=== PATIENT | female | born 1975 | race Hispanic/Latino ===

== ENCOUNTER 2018-02-28 16:31 | Emergency (ER) | payer SELFPAY ==
[2018-02-28] MEDS ORDERED: LORazepam 2 MG/ML VIAL ONE (17:09)
[2018-02-28 17:28] LABS: Absolute Monocytes 0.5 K/uL (0.1-1.3); Basophils % 0.6 % (0-1.3); Hematocrit 38.5 % (36.0-45.0); Lymphocytes % 26.7 % (15.3-44.8); MCH 32.7 pg (27.0-35.0); MCV 94.2 fL (80-100); MPV 8.5 fL (7.6-11.3); Monocytes % 6.2 % (3.3-12.3); RBC Red Blood Cell Count 4.09 M/uL (3.86-4.86)
[2018-02-28 17:33] LABS: Bicarbonate 25 mEq/L (21-31); Glucose Level 113 mg/dL (65-120); Potassium 3.5 mEq/L (3.6-5.0); Sodium Level 139 mEq/L (135-145)
[2018-02-28 17:36] LABS: Protime INR 0.96
[2018-02-28 17:39] LABS: ALT/SGPT 14 IU/L (10-60); AST/SGOT 22 IU/L (10-42); Albumin 4.7 g/dL (3.2-5.5); Alkaline Phosphatase 57 IU/L (42-121); BUN Blood Urea Nitrogen 7 mg/dL (6-20); Bilirubin Direct 0.1 mg/dL (0-0.2); Bilirubin Total 0.6 mg/dL (0.3-1.2); Protein, Total 8.1 g/dL (6.0-8.3)
[2018-02-28 17:41] LABS: Alcohol Serum/Plasma < 10 mg/dl
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
[2018-02-28 19:17] LABS: Barbiturates NEGATIVE; Benzodiazepines NEGATIVE; Cocaine NEGATIVE; METHAMPHETAM NEGATIVE; Opiates NEGATIVE
[2018-02-28 19:24] LABS: Urine Blood TRACE (NEG); Urine Glucose NEGATIVE (NEG); Urine Protein NEGATIVE (NEG); Urine pH 6.5 (5.0-7.0)
[2018-02-28 21:15] LABS: Phencyclidine NEGATIVE; THC Cannibis NEGATIVE
--- NOTE | 2018-03-01 06:55 | EKG ---
Test Date: 2018-02-28 Test Time: 16:55:57 Seasoner Hand: HAM MEASUREMENT RESULTS: Intervals: Rate: 75 VT: 132 QRSD: 62 QT: 358 QTc: 399 [place]: P: 71 VT: 132 QRS: 44 T: 56 INTERPRETIVE STATEMENTS: Normal sinus rhythm Right atrial enlargement Borderline ECG No previous ECG available for comparison Electronically Signed On 03-01-18 06:54:29 CDT by Jerry Wu
== END 2018-02-28 19:45 | disposition home or self-care (01) ==
LOC: ER 16:31
DX: G89.11 Acute pain due to trauma (principal); R56.9 Unspecified convulsions; V57.5XXA Driver of pick-up truck or van injured in collision with fixed or stationary object in traffic accident, initial encounter; F17.210 Nicotine dependence, cigarettes, uncomplicated; Z98.2 Presence of cerebrospinal fluid drainage device
CPT/HCPCS: 36415; 70450; 71260; 72125; 74177; 80048; 80076; 80307; 80320; 81003; 81025; 85025; 85610; 93005; 96374; 99284; Q9967

== ENCOUNTER 2020-04-05 22:39 | Emergency (ER) | payer SELFPAY ==
[2020-04-05 23:12] LABS: Absolute Lymphocytes (CBC) 4.1 K/uL (0.7-4.9); Basophils % 0.3 % (0-1.3); Hematocrit 35.5 % (36.0-45.0); Lymphocytes % 47.9 % (15.3-44.8); MPV 8.3 fL (7.6-11.3); RBC Red Blood Cell Count 3.69 M/uL (3.86-4.86)
[2020-04-05 23:16] LABS: Protime INR 0.97
[2020-04-05] MEDS ORDERED: NA CHLORIDE 0.9% 1,000 ML ONE (23:16)
[2020-04-05 23:32] LABS: ALT/SGPT 15 U/L (12-78); AST/SGOT 14 U/L (15-37); Alkaline Phosphatase 71 U/L (45-117); BUN Blood Urea Nitrogen 7 mg/dL (7-18); Bicarbonate 27 mmol/L (21-32); Bilirubin Direct < 0.1 mg/dL (0-0.2); Bilirubin Total 0.3 mg/dL (0.2-1.0); Glucose Level 79 mg/dL (74-106); Magnesium 2.1 mg/dL (1.8-2.4); NT PRO-BNP 26 pg/mL (<125); Potassium 3.7 mmol/L (3.5-5.1); Protein, Total 7.9 g/dL (6.4-8.2); Sodium Level 138 mmol/L (136-145); Troponin (Emerg Dept Use Only) < 0.02 ng/mL (0.0-0.045)
[2020-04-06 00:53] LABS: Urine Blood TRACE (NEG); Urine Glucose NEGATIVE (NEG); Urine Protein NEGATIVE (NEG); Urine pH 5.5 (5.0-7.0)
[2020-04-06 01:06] LABS: Barbiturates NEGATIVE (NEGATIVE); Benzodiazepines NEGATIVE (NEGATIVE); Cocaine NEGATIVE (NEGATIVE); METHAMPHETAM NEGATIVE (NEGATIVE); Methadone NEGATIVE (NEGATIVE); Opiates NEGATIVE (NEGATIVE); Phencyclidine NEGATIVE (NEGATIVE); THC Cannibis NEGATIVE (NEGATIVE)
[2020-04-06 01:22] LABS: Urine Bacteria 20-50 /HPF (<20); Urine Culture Reflex Order REFLEXED; Urine RBC <5 /HPF (NONE SEEN)
[2020-04-06] MEDS ORDERED: NA CHLORIDE 0.9% 500 ML ONE (01:30)
[2020-04-06] MEDS ORDERED: LEVETIRACETAM 500 MG/5 ML VIAL IV ONE (01:30)
[2020-04-06] MEDS ORDERED: CEFTRIAXONE/SWI 1gm 1 GM/10 ML SYR ONE (02:15)
[2020-04-06 03:16] VITALS: BP 101/62; TEMP 97.7; O2SAT 100
--- NOTE | 2020-04-06 11:24 | RAD REPORT ---
EXAM DESCRIPTION: Ismael Single View04/05/2020 11:04 pm CLINICAL HISTORY: Chest pain COMPARISON: none FINDINGS: Nodular opacity overlies each lung base. Remainder lungs appear clear of acute infiltrate The heart is normal size IMPRESSION: Nodular opacity overlying each lung base probably nipple shadows. As 1 or both could rep resent pulmonary nodules it is recommended that the patient have frontal and oblique views of the [address] with nipple markers for confirmation
--- NOTE | 2020-04-06 12:43 | RAD REPORT ---
EXAM DESCRIPTION: CT - Head Brain Wo Cont - 04/06/2020 3:03 am CLINICAL HISTORY: 45 years Female MENTAL STATUS CHANGE COMPARISON: None. TECHNIQUE: Contiguous axial CT images obtained through the brain without IV contrast. This exam was performed according to our department optimization program which includes automated exp osure control, adjustment of the mA and/or kv according to patient size and/or use of iterative recon struction technique. FINDINGS: There is a right parietal shunt tube passing through the right lateral ventricle with its tip just anterior to the right frontal horn. The shunt tubing below the radiolucent connector is not visualized suggesting that the shunt tube is no longer being used. The sulci appear unremarkable. Questionable minimal prominence of the ventricles. No abnormal areas of decreased density are identified. No mass lesions. No acute hemorrhage. No fluid or significant mucosal thickening in the visualized paranasal sinuses. No depressed calvarial fractures. IMPRESSION: There is a right parietal shunt tube which does not appear to be in use at this time. Cl inical correlation is recommended. The ventricles are likely normal but minimal hydrocephalus cannot be totally excluded. Electronically signed by: Myles El MD 04/05/2020 11:50 PM CDT Due to temporary technical issues with the PACS/Fluency reporting system, reports are being signed by the in house radiologist without review as a courtesy to ensure prompt reporting. The interpreting r adiologist is fully responsible for the content of the report.
--- NOTE | 2020-04-06 14:06 | EKG ---
Test Date: 2020-04-05 Test Time: 22:45:41 Firefighter Marine: RR MEASUREMENT RESULTS: Intervals: Rate: 83 [place]: 142 QRSD: 70 QT: 340 QTc: 399 [place]: P: 77 [place]: 142 QRS: 43 T: 69 INTERPRETIVE STATEMENTS: Normal sinus rhythm Septal infarct, age undetermined Abnormal ECG No previous ECG available for comparison Electronically Signed On 04-06-20 14:05:40 CDT by Kody Franco
--- NOTE | 2020-04-07 18:29 | ER ---
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 Reports an episode of epilepsy about two months ago . Coronavirus screen: Proceed with normal triage. Ebola Screen: No symptoms or risks identified at this time. Initial Sepsis Screen: Does the patient meet any 2 criteria? No. Patient's initial sepsis screen is negative. Does the patient have a suspected source of infection? No. Patient's initial sepsis screen is negative. Risk Assessment: Do you want to hurt yourself or someone else? Patient reports no desire to harm self or others. Onset of symptoms was April 05, 2020. 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 - Social history:: Smoking status: Patient reports the use of cigarette tobacco products. Screenin:47 Abuse screen: Denies threats or abuse. Nutritional screening: No deficits noted. ea Tuberculosis screening: No symptoms or risk factors identified. Fall Risk Assessment: 23:00 General: Appears in no apparent distress. uncomfortable, Behavior is cooperative. Pain: rr5 Denies pain. Neuro: Level of Consciousness is awake, episodes of delayed response. Oriented to person, place, time, tremors. Reports refrigeration person stated she is shaking started 7PM today. 23:00 Cardiovascular: Capillary refill < 3 seconds Patient's skin is warm and dry. rr5 Respiratory: Airway is patent Respiratory effort is even, unlabored, Respiratory pattern is regular, symmetrical. GI: No signs and/or symptoms were reported involving the gastrointestinal system. : No signs and/or symptoms were reported regarding the genitourinary system. EENT: No signs and/or symptoms were reported regarding the EENT system. Derm: Skin is intact, is thin, Skin temperature is warm. Musculoskeletal: Capillary refill < 3 seconds. 04/06 00:00 Reassessment: Patient appears in no apparent distress at this time. Patient is alert, rr5 oriented x 3, equal unlabored respirations, skin warm/dry/pink. patient stated i feel fine now. no active tremors noted. 00:15 Reassessment: verbal order by the provider only one liter of NS to infuse and no rr5 antibiotic for now. 01:00 Reassessment: Patient appears in no apparent distress at this time. Patient is alert, rr5 oriented x 3, equal unlabored respirations, skin warm/dry/pink. awaiting for result. 02:00 Reassessment: Patient appears in no apparent distress at this time. No changes from rr5 previously documented assessment. Patient and/or family updated on plan of care and expected duration. Pain level reassessed. Patient is alert, oriented x 3, equal unlabored respirations, skin warm/dry/pink. 02:44 Reassessment: Patient appears in no apparent distress at this time. Patient is alert, rr5 oriented x 3, equal unlabored respirations, skin warm/dry/pink. discharge instruction given and explained without complaints made. Vital Signs: 04/05 23:00 BP 144 / 90; Pulse 134; Resp 19; Temp 97.8; Pulse Ox 99% ; rr5 23:00 Weight 50 kg; rr5 23:28 BP 114 / 89; Pulse 95; Resp 18; Pulse Ox 98% on R/A; rr5 04/06 01:00 BP 99 / 65; Pulse 89; Resp 17; Pulse Ox 100% ; rr5 02:00 BP 105 / 62; Pulse 75; Resp 16; Pulse Ox 99% ; rr5 02:32 BP 101 / 62; Pulse 70; Resp 19; Temp 97.7; Pulse Ox 100% ; rr5 ED Course: 04/05 22:41 Patient arrived in ED. ds1 22:42 Phillip Olmstead PA is PHCP. cp 22:43 Nathaniel Link MD is Attending Physician. cp 22:47 Triage completed. ea 22:48 Patient has correct armband on for positive identification. Placed in gown. Bed in low ea position. Call light in reach. Side rails up X2. monitoring specialist on. Pulse ox on. NIBP on. 22:48 Arm band placed on right wrist. Patient placed in an exam room, on a stretcher, on ea registered nurse cardiac, on pulse oximetry. 22:50 EKG done, by ED staff, reviewed by Phillip DAWSON. rr5 23:00 Inserted saline lock: 18 gauge in right forearm, using aseptic technique. Blood rr5 collected. 23:00 First set of blood cultures drawn by me. rr5 23:05 XRAY Chest (1 view) In Process Unspecified. EDMS 23:05 Juan Carlos Gorman, RN is Primary Nurse. rr5 23:10 Seizure precautions initiated. rr5 23:10 Warm blanket given. rr5 23:38 CT Head Brain wo Cont In Process Unspecified. EDMS 23:43 No provider procedures requiring assistance completed. ls4 23:52 Juan Carlos Gorman, RN is Primary Nurse. rr5 04/06 00:40 Urine collected: clean catch specimen, clear. rr5 01:46 Repeat lab(s) drawn. by ED staff, sent to lab. rr5 02:22 Tee Meza MD is Referral Physician. cp 02:44 IV discontinued, intact, bleeding controlled, No redness/swelling at site. Pressure rr5 dressing applied. Administered Medications: 04/05 23:05 Drug: NS 0.9% 1000 ml Route: IV; Rate: 1 bolus; Site: right forearm; rr5 04/06 00:00 Follow up: IV Status: Completed infusion; IV Intake: 1000ml rr5 01:25 Drug: Keppra 1000 mg Route: IV; Rate: calculated rate; Site: right forearm; rr5 02:00 Follow up: Response: No adverse reaction; IV Status: Completed infusion; IV Intake: rr5 100ml 02:10 Drug: Rocephin 1 grams Route: IV; Rate: calculated rate; Site: right forearm; rr5 02:30 Follow up: Response: No adverse reaction; IV Status: Completed infusion; IV Intake: [id number] Intake: 00:00 IV: 1000ml; Total: 1000ml. rr5 02:00 IV: 100ml; Total: 1100ml. rr5 02:30 IV: 10ml; Total: 1110ml. rr5 Outcome: 02:23 Discharge ordered by . cp 02:44 Discharged to home via wheelchair. rr5 02:44 Condition: stable 02:44 Discharge instructions given to patient, Instructed on discharge instructions, follow up and referral plans. medication usage, Demonstrated understanding of instructions, follow-up care, medications, Prescriptions given X 2. 02:46 Patient left the ED. rr5 Signatures: Dispatcher [employer] EDKY DysonMalloryi ds1 Phillip Olmstead PA PA cp Antunez, Elena, RN RN Briana Parks RN RN ls4 Juan Carlos Gorman, RN RN rr5
--- NOTE | 2020-04-07 18:30 | EDPHYS ---
Physician Documentation [facility] Name: Clarisse Villalba Age: 45 yrs Sex: Female : 1975 Arrival Date: 04/05/2020 Time: 22:41 Bed 6 Private MD: ED Physician Nathaniel Link HPI: 04/05 22:50 This 45 yrs old Female presents to ER via Wheelchair with complaints of Shaking. cp 22:50 The patient presents with decreased mental status. cp 22:50 Onset: The symptoms/episode began/occurred today. Associated signs and symptoms: cp Pertinent positives: shaking of arms. Current symptoms: In the emergency department the patient's symptoms are unchanged from the initial presentation, despite home interventions. Patient's baseline: Neuro: alert and fully oriented, Motor: no deficits, Ambulation: walks without assistance, Speech: normal. Unable to obtain HPI due to altered mental status. 22:50 Mother reports patient went to [place] yesterday to see a physician for unknown cp reason. Mother reports she visited patient this morning about 0700 and she was appeared normal. 04/06 01:04 Patient alert now times 3 and reports history of seizure disorder since 2007. Patient cp reports seeing neurologist, DR Flaherty, and having MRI done yesterday in [place]. Last thing she remember is spilling cup of coffee on self earlier tonight. 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 - Social history:: Smoking status: Patient reports the use of cigarette tobacco products. ROS: 22:55 Neuro: Positive for altered mental status. cp 22:55 Constitutional: Negative for fever. cp 22:55 All other systems are negative. 22:55 Unable to obtain ROS due to altered mental status. Exam: 22:50 ECG was reviewed by the Attending Physician. cp 23:00 Constitutional: The patient appears in no acute distress, alert, awake, cp non-diaphoretic, non-toxic, well developed, well nourished. 23:00 Head/Face: Normocephalic, atraumatic. cp 23:00 Eyes: Periorbital structures: appear normal, Pupils: equal, round, and reactive to light and accomodation, Extraocular movements: intact throughout, Conjunctiva: normal, no exudate, no injection, Sclera: no appreciated abnormality, Lids and lashes: appear normal, bilaterally. 23:00 ENT: External ear(s): are unremarkable, Ear canal(s): are normal, clear, TM's: dullness, bilaterally, Nose: is normal, Mouth: Lips: moist, Oral mucosa: moist, Posterior pharynx: Airway: no evidence of obstruction, patent. 23:00 Neck: ROM/movement: is normal, is supple, without pain, no range of motions limitations, no meningismus, no nuchal rigidity. 23:00 Chest/axilla: Inspection: normal, Palpation: is normal, no crepitus, no tenderness. 23:00 Cardiovascular: Rate: tachycardic, Rhythm: regular, Edema: is not appreciated, JVD: is not appreciated. 23:00 Respiratory: the patient does not display signs of respiratory distress, Respirations: normal, no use of accessory muscles, no retractions, no tachypnea, labored breathing, is not present, Breath sounds: are clear throughout, no decreased breath sounds, no stridor, no wheezing. 23:00 Abdomen/GI: Inspection: abdomen appears normal, Bowel sounds: active, all quadrants, Palpation: abdomen is soft and non-tender, in all quadrants, rebound tenderness, is not appreciated, involuntary guarding, is not appreciated. 23:00 Back: vertebral tenderness, is not appreciated. 23:00 Musculoskeletal/extremity: Exam is negative for decreased range of motion, deformity, injury. 23:00 Skin: no rash present. 23:00 Neuro: Orientation: to person, Mentation: able to follow commands, slow to respond, confused, sleepy, Motor: moves all fours. Vital Signs: 23:00 BP 144 / 90; Pulse 134; Resp 19; Temp 97.8; Pulse Ox 99% ; rr5 23:00 Weight 50 kg; rr5 23:28 BP 114 / 89; Pulse 95; Resp 18; Pulse Ox 98% on R/A; rr5 04/06 01:00 BP 99 / 65; Pulse 89; Resp 17; Pulse Ox 100% ; rr5 02:00 BP 105 / 62; Pulse 75; Resp 16; Pulse Ox 99% ; rr5 02:32 BP 101 / 62; Pulse 70; Resp 19; Temp 97.7; Pulse Ox 100% ; rr5 MDM: 04/05 22:50 Patient medically screened. 23:00 Differential Diagnosis: CVA, alcohol intoxication, hypoglycemia, meningitis, overdose, cp seizure, sepsis, TIA, UTI, volume depletion. 04/06 01:35 Physician consultation: Tee Meza MD was called at 01:15, left message on voicemail. 02:00 ED course: VSS. Patient alert and answering questions appropriately. 02:22 Data reviewed: vital signs, nurses notes, lab test result(s), EKG, radiologic studies, cp CT scan, I have discussed the patient's presentation/case with the attending Emergency Department Physician; and as a result, I will discharge patient. 02:22 Test interpretation: by ED physician or midlevel provider: ECG, plain radiologic cp studies. Counseling: I had a detailed discussion with the patient and/or guardian regarding: the historical points, exam findings, and any diagnostic results supporting the discharge/admit diagnosis, lab results, radiology results, the need for outpatient follow up, for definitive care, a neurologist, to return to the emergency department if symptoms worsen or persist or if there are any questions or concerns that arise at home. Response to treatment: the patient's symptoms have markedly improved after treatment, and as a result, I will discharge patient. 04/05 22:53 Order name: Basic Metabolic Panel; Complete Time: 00:09 04/06 00:09 Interpretation: Normal except: GFR 73. 04/05 22:53 Order name: CBC with Diff; Complete Time: 00:09 04/06 00:33 Interpretation: Normal except: RBC 3.69; HCT 35.5; WENCESLAO% 40.8; LYM% 47.9. 04/05 22:53 Order name: LFT's; Complete Time: 00:09 04/06 00:33 Interpretation: Normal except: AST 14; GLOB 3.9; A/G 1.0. 04/05 22:53 Order name: Magnesium; Complete Time: 00:09 04/05 22:53 Order name: NT PRO-BNP; Complete Time: 00:09 04/05 22:53 Order name: PT-INR; Complete Time: 00:09 cp 04/05 22:53 Order name: Troponin (emerg Dept Use Only); Complete Time: 00:09 cp 04/06 00:34 Interpretation: Within normal limits: TROPED < 0.02. cp 04/05 22:53 Order name: Lactate; Complete Time: 00:09 04/06 00:33 Interpretation: Abnormal: LAC 2.2. cp 04/05 22:53 Order name: Procalcitonin; Complete Time: 00:09 cp 04/06 00:34 Interpretation: Within normal limits: Procalcitonin < 0.05. cp 04/05 22:53 Order name: UDS; Complete Time: 01:15 cp 04/05 22:53 Order name: Blood Culture Adult (2) 04/05 22:53 Order name: Urine Microscopic Only; Complete Time: 01:52 04/06 01:52 Interpretation: Normal except: UBACT 20-50. 04/06 00:45 Order name: Urine Dipstick--Ancillary (enter results); Complete Time: 01:15 or 04/06 01:52 Interpretation: Normal except: UBLD TRACE. cp 04/06 00:45 Order name: Urine --Ancillary (enter results); Complete Time: 01:15 mt 04/05 22:53 Order name: XRAY Chest (1 view) 04/05 22:53 Order name: EKG; Complete Time: 22:54 04/05 22:53 Order name: Cardiac monitoring; Complete Time: 23:05 04/05 22:53 Order name: EKG - Nurse/Tech; Complete Time: 23:05 04/05 22:53 Order name: IV Saline Lock; Complete Time: 23:05 04/05 22:53 Order name: Labs collected and sent; Complete Time: 23:06 04/05 22:53 Order name: O2 Per Protocol; Complete Time: 23:06 04/05 22:53 Order name: O2 Sat Monitoring; Complete Time: 23:06 04/05 22:53 Order name: CT Head Brain wo Cont cp 04/05 22:53 Order name: Urine Dipstick-Ancillary (obtain specimen); Complete Time: 00:44 cp 04/05 22:53 Order name: Urine Test (obtain specimen); Complete Time: 00:44 cp 04/06 01:24 Order name: Urine Culture EDAR 04/06 02:06 Order name: Lactate Sepsis 2 HR Follow-up; Complete Time: 02:22 EDAR 04/06 02:22 Interpretation: Reviewed. 04/06 01:37 Order name: Labs - recollect needed: repeat sepsis per protocol; Complete Time: 01:46 sg EC/30 22:50 Rate is 83 beats/min. Rhythm is regular. [place] interval is normal. QRS interval is normal. QT interval is normal. Interpreted by me. Reviewed by me. Administered Medications: 23:05 Drug: NS 0.9% 1000 ml Route: IV; Rate: 1 bolus; Site: right forearm; rr5 04/06 00:00 Follow up: IV Status: Completed infusion; IV Intake: 1000ml rr5 01:25 Drug: Keppra 1000 mg Route: IV; Rate: calculated rate; Site: right forearm; rr5 02:00 Follow up: Response: No adverse reaction; IV Status: Completed infusion; IV Intake: rr5 100ml 02:10 Drug: Rocephin 1 grams Route: IV; Rate: calculated rate; Site: right forearm; rr5 02:30 Follow up: Response: No adverse reaction; IV Status: Completed infusion; IV Intake: [id number] Disposition: 02:30 Chart complete. 07:12 Co-signature as Attending Physician, Nathaniel Link MD. [email or web address] Disposition: 04/06/20 02:23 Discharged to Home. Impression: Epilepsy and recurrent seizures, Urinary tract infection, site not specified. - Condition is Stable. - Discharge Instructions: Seizure, Adult, Urinary Tract Infection, Adult. - Prescriptions for Keppra 500 mg Oral Tablet - take 1 tablet by ORAL route every 12 hours; 60 tablet. Bactrim DS 800- 160 mg Oral Tablet - take 1 tablet by ORAL route every 12 hours for 5 days; 10 tablet. - Medication Reconciliation Form, Thank You Letter, Antibiotic Education, Prescription Opioid Use form. - Follow up: Tee Meza MD; When: 2 - 3 days; Reason: Recheck today's complaints. - Problem is an ongoing problem. - Symptoms have improved. Signatures: Dispatcher [facility] Cale Moreno RN RN sg Page, Corey, PA PA cp Antunez, Elena, RN RN ea Roque, Raymond RN RN rr5 Nathaniel Link MD MD [email or web address] Corrections: (The following items were deleted from the chart) 02:46 02:23 04/06/2020 02:23 Discharged to Home. Impression: Epilepsy and recurrent seizures; rr5 Urinary tract infection, site not specified. Condition is Stable. Prescriptions for Keppra 500 mg Oral Tablet - take 1 tablet by ORAL route every 12 hours; 60 tablet, Bactrim DS 800-160 mg Oral Tablet - take 1 tablet by ORAL route every 12 hours for 5 days; 10 tablet. and Forms are Medication Reconciliation Form, Thank You Letter, Antibiotic Education, Prescription Opioid Use. Follow up: Tee Meza; When: 2 - 3 days; Reason: Recheck today's complaints. Problem is an ongoing problem. Symptoms have improved. cp
== END 2020-04-06 02:46 | disposition home or self-care (01) ==
LOC: MERGE 22:39 → ER 22:39
DX: N39.0 Urinary tract infection, site not specified (principal)
CPT/HCPCS: 36415; 70450; 71045; 80048; 80076; 80307; 81003; 81015; 81025; 83605; 83735; 83880; 84145; 84484; 85025; 85610; 87040; 87086; 87088; 93005; 96361; 96365; 96367; 99285; J0696; J1953; J7030; J7040

== ENCOUNTER 2020-04-08 22:58 | Emergency (ER) | payer SELFPAY ==
--- OUTSIDE RECORDS SUMMARY | 2020-04-08 23:06 | XMS REPORT | Summary of Care ---
:1975 Author Organization [facility] Address [address] [place] [id number] Care Team Providers Name Role Phone Anh Roman Jeanne UMANZOR Primary Care Provider Reason for Referral (Routine) Status Reason Specialty Diagnoses / Referred By Contact Refe rred To Procedures Contact New Request EEG Diagnoses Partial symptomatic epilepsy with complex partial seizures, not intractable, without status epilepticus Tee Davis Eeg/Ep-Jsa Procedures Electroencephalogram (EEG) - Duration of test: 20-60 mins MD Brandyn [address] [place] [phone] Phone: Phone: Fax: Reason for Visit Reason Comments Seizures Encounter Details Date Type Department Care Team Description 02/04/2020 Telemedicine Visit [facility] Tee Davis l symptomatic Neurology-Sasha Ahumada MD epilepsy with [facility] [address], [address] [facility]. seizures, not [place], [place] intractable, [phone] without status [phone] epilepticus (Primary Dx) Allergies No Known Allergiesdocumented as of this encounter (statuses as of 02/11/2020) Medications Medication Sig Dispensed Refills Start Date End Date Status aspirin-acetaminophen- Take 1 tablet by 0 Active caffeine (EXCEDRIN mouth every 6 MIGRAINE) 250-250-65 (six) hours as mg per tablet needed for Pain. documented as of this encounter (statuses as of 02/11/2020) Active Problems Problem Noted Date Encounter for other general counseling or advice on co ntraception 12/15/2016 Encounter for routine gynecological examination 2014 Overview: ICD10 Diagnosis Term [employer] Utility Surveillance of previously prescribed contraceptive me thod 11/27/2014 Overview: ICD10 Diagnosis Term [employer] Depo-Provera contraceptive status 11/27/2014 Underweight 11/27/2014 documented as of this encounter (statuses as of 02/11/2020) Resolved Problems Problem Noted Date Resolved Date Cold intolerance 11/27/2014 11/18/2015 documented as of this encounter (statuses as of 02/11/2020) Social History Tobacco Use Types Packs/Day Years Used Date Never Smoker Smokeless Tobacco: Never Used Alcohol Use Drinks/Week oz/Week Comments No 0 Standard drinks or equivalent 0.0 Sex Assigned at Date Recorded Not on file Job Start Date Occupation Industry Not on file Not on file Not on file Travel History Travel Start Travel End No recent travel history available. documented as of this encounter Last Filed Vital Signs Not on filedocumented in this encounter Progress Notes Tee Davis MD - 02/04/2020 9:40 AM CDT HISTORY OF PRESENT ILLNESS: Clarisse Villalba is a 45 year old female. Chief complaint: Question of seizures. The patient verbally consented to the televisit today. The visit was conducted by telehealth with patient at home and the physician in the office. No other participants were involved in the visit. Thisvisit was audio only. The patient had previously been seen back in 2018, and at that time it seemedvery likely that she probably was suffering with seizures. She generally has what she describes our "small ones" in the morning, and around 01/24/2020 she had a longer episode which involved also the right arm and leg jerking. That had lasted about 15 or 20 minutes. The brother of the patient had been holding her up. She is not sure in the past whether or not she has been on any other anticonvulsant me dication. She does know that she is not supposed to be driving and in fact she did lose her driving privileges. PMH: has a past medical history of Meningitis (1979) and Trauma (12/14/2014). She also has no past medical history of Abnormal Pap smear, Abnormal uterine bleeding, Anemia, Anesthesia complication, Anxiety, Asthma, Autoimmune disorder, Blood dyscrasia, Blood transfusion, without reported diagnosis, Breastdisorder, Cancer, Clotting disorder, Coronary atherosclerosis of unspecified type of vessel, [place] or graft, Depression, Diabetes mellitus, Endometriosis, Female infertility, Genital herpes, Genital warts, Heart murmur, Hormone disorder, Human immunodeficiency virus (HIV) disease, Hypertension, Kidney disease, Leiomyoma of uterus, unspecified, Liver disease, Menstrual disorder, Osteoporosis, PID (pelvic inflammatory disease), Rh incompatibility, Seizures, Sickle cell anemia, Substance abuse, Superficial thrombophlebitis, antepartum(671.23), Thyroid disease, Tuberculosis, or Urinary incontinence. Current Outpatient Medications: iqyaahx-aylakbtddeyrb-uoobxhrn (EXCEDRIN MIGRAINE) 250-250-65 mg per tablet, Take 1 tablet by mouth every 6 (six) hours as needed for Pain., Disp: , Rfl: Family History Problem Relation Age of Onset Asthma Paternal Grandmother defects NoFHx Breast Cancer NoFHx Colon Cancer NoFHx Ovarian Cancer NoFHx Uterine Cancer NoFHx Cancer NoFHx Depression NoFHx Diabetes NoFHx Genetic NoFHx Heart NoFHx High cholesterol NoFHx Hypertension NoFHx Mental retardation NoFHx Neurological NoFHx Osteoporosis NoFHx Psychiatry NoFHx Other - see comments NoFHx Arthritis NoFHx Social History Socioeconomic History Marital status: Single Spouse name: Not on file Number of children: Not on file Years of education: Not on file Highest education level: Not on file Occupational History Not on file Social Needs Financial resource strain: Not on file Food insecurity: Worry: Not on file Inability: Not on file Transportation needs: Medical: Not on file Non-medical: Not on file Tobacco Use Smoking status: Never Smoker Smokeless tobacco: Never Used Substance and Sexual Activity Alcohol use: No Alcohol/week: 0.0 standard drinks Drug use: No Sexual activity: Not Currently control/protection: Injection Lifestyle Physical activity: Days per week: Not on file Minutes per session: Not on file Stress: Not on file Relationships Social connections: Talks on phone: Not on file Gets together: Not on file Attends spiritism service: Not on file Active member of club or organization: Not on file Attends meetings of clubs or organizations: Not on file Relationship status: Not on file Intimate partner violence: Fear of current or ex partner: Not on file Emotionally abused: Not on file Physically abused: Not on file Forced sexual activity: Not on file Other Topics Concern Not on file Social History Narrative Patient denies any violence or domestic abuse. The patient is alert and oriented times 3. Cooperative and pleasant during the examination and will follow multi step commands. Joint Cutter Machine and expression normal. No paraphrasic errors present. ASSESSMENT AND RECOMMENDATIONS: ICD-10-CM ICD-9-CM 1. Partial symptomatic epilepsy with complex partial seizures, not intractable, without status epilepticus G40.209 345.40 I did encourage the patient to get EEG completed, I think that she really needs to have it done so that we can document epileptiform discharges and also get an idea if she has one or more focuses of potential abnormality. During the telephone visit as well, discussion occurred about possible treatment, and I did tell the patient that the treatment would likely be with a medication called Keppra. Alsodid discuss potential risks and benefits of that medication while we were on the telephone. I did tell her we could see her back and probably treat her with a medication like Keppra once she has the EEG and I also explained that this drug was a generic medication. Creation of the note was aided by utilizing a cut/paste operation of text from a Microsoft Word template created with [employer]. The text was dictated into the template via Dragon Naturally Speaking. documented in this encounter Plan of Treatment Health Maintenance Due Date Last Done Comments DTaP,Tdap,and Td Vaccines 01/24/1988 (1 - Tdap) Breast Cancer Screening 2017 (MAMMOGRAM) PAP SMEAR 11/19/2017 11/19/2014, 04/26/2011, 03/03/2010, Additional history exists INFLUENZA VACCINE (#1) 2019 PNEUMOCOCCAL 0-64 YEARS Aged Out No longe r eligible COMBINED SERIES based on patient 's age to complete this topic documented as of this encounter Results Not on filedocumented in this encounter Visit Diagnoses Diagnosis Partial symptomatic epilepsy with comple x partial seizures, not intractable, without status epilepticus - Primary documented in this encounter Advance Directives Name Relationship Healthcare Agent Communication Relationship Yuki Villalba Mother [facility] healthcare agent (Mobile) [email or web address]
--- OUTSIDE RECORDS SUMMARY | 2020-04-08 23:06 | XMS REPORT | Continuity of Care Document ---
:1975 Author Organization [facility] t Address [address] [place] [address] Care Team Providers Name Role Phone Brandyn Davis MD Attending Clinician Problems This patient has no known problems. Allergies, Adverse Reactions, Alerts This patient has no known allergies or adverse reactions. Medications This patient has no known medications. Procedures This patient has no known procedures. Encounters Start End Encounter Admission Attending Care Care Encounter Source Date/Time Date/Time Type Type Clinicians Facility Department ID 2020-02-04 2020-02-04 [facility] Ryan [facility] [id number] 08:29:52 15:38:10 ne Visit Tee Baez [id number] [place] [id number] [place] [id number] nal 2 Building Results This patient has no known results.
[2020-04-09] MEDS ORDERED: HYDROCOD 2.5mg-ACETAMIN 108mg/5mL Soln ONE (00:47)
--- NOTE | 2020-04-09 01:18 | ER ---
Nurse's Notes [facility] Name: Clarisse Villalba Age: 45 yrs Sex: Female : 1975 Arrival Date: 04/08/2020 Time: 22:59 Bed 17 Private MD: Diagnosis: Fall (on) (from) other stairs and steps;Contusion of back wall of thorax;Abrasion of back wall of thorax;Contusion of left hip Presentation: 04/08 22:56 Chief complaint: EMS states: Pt was walking down the stair and got about half way down jb4 when she lost her footing and fell the rest of the way. Coronavirus screen: Proceed with normal triage. Ebola Screen: No symptoms or risks identified at this time. Initial Sepsis Screen: Does the patient meet any 2 criteria? No. Patient's initial sepsis screen is negative. Does the patient have a suspected source of infection? No. Patient's initial sepsis screen is negative. 22:56 Method Of Arrival: EMS: [facility] jb4 22:56 Risk Assessment: Do you want to hurt yourself or someone else? Patient reports no jb4 desire to harm self or others. Onset of symptoms was April 08, 2020. Mechanism of Injury: Fall down steps. Transition of care: patient was not received from another setting of care. 22:56 Acuity: MICHAEL 3 jb4 22:56 Care prior to arrival: Placed on backboard. Medication(s) given: Nobucain, 100mg. jb4 Trauma event details: Injury occurred in the [facility]. Trauma Activation: Alert Physician: ED Physician; Name: Dr. 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 - Social history:: Smoking status: Patient denies any tobacco usage or history of. Patient/guardian denies using alcohol, street drugs. - Immunization history: Last tetanus immunization: unknown. Screenin:56 Abuse screen: Denies threats or abuse. Nutritional screening: No deficits noted. jb4 Tuberculosis screening: No symptoms or risk factors identified. Fall risk None identified. Primary Survey: 22:56 NO uncontrolled hemorrhage observed. A: The patient is alert. Airway: patent, No jb4 supplemental oxygen in use on arrival. Oral cavity: clear, gag reflex present, Trachea midline. Breathing/Chest: Respiratory pattern: regular, Respiratory effort: spontaneous, unlabored, Chest inspection: symmetrical rise and fall of the chest. Circulation: Cardiac rhythm: sinus rhythm Pulses: palpable right dorsalis pedis artery and left dorsalis pedis artery. Skin color: pink, Skin temperature: warm, dry. Disability Alert. Exposure/Environment: All clothing and personal items were removed. Forensic evidence collection is not deemed to be indicated at this time. Items placed in patient belonging bag. 06/03 00:00 Reassessment Airway Airway Patent Oxygen No O2 Oral cavity Clear +Gag reflex Trachea jb4 Midline Breathing/Chest Respiratory pattern Regular Respiratory effort Spontaneous Unlabored Chest inspection Symmetrical Circulation Heart rhythm Sinus rhythm Pulses Palpable Color [place] Temperature Warm Dry Disability Alert. Secondary Survey: 0602 22:56 HEENT: No deficits noted. Gastrointestinal: No deficits noted. : No deficits noted. jb4 Musculoskeletal: Circulation, motion, and sensation intact. Capillary refill < 3 seconds, in bilateral toes. Range of motion: intact in all extremities. Injury Description: Abrasion sustained to left mid back. Assessment: 22:56 General: Appears in no apparent distress. uncomfortable, Behavior is calm, cooperative, jb4 appropriate for age. Pain: Complains of pain in lumbar area, left hip and neck Pain does not radiate. Pain currently is 6 out of 10 on a pain scale. Quality of pain is described as throbbing. Neuro: Level of Consciousness is awake, alert, obeys commands, Oriented to. Cardiovascular: Patient's skin is warm and dry. Respiratory: Airway is patent Respiratory effort is even, unlabored, Respiratory pattern is regular, symmetrical. GI: No signs and/or symptoms were reported involving the gastrointestinal system. : No signs and/or symptoms were reported regarding the genitourinary system. EENT: No signs and/or symptoms were reported regarding the EENT system. Derm: Skin is pink, warm \T\ dry. Musculoskeletal: Circulation, motion, and sensation intact. Range of motion: intact in all extremities. Injury Description: Abrasion sustained to left mid back. 04/09 00:00 Reassessment: Patient appears in no apparent distress at this time. Patient and/or jb4 family updated on plan of care and expected duration. Pain level reassessed. Patient is alert, oriented x 3, equal unlabored respirations, skin warm/dry/pink. 01:00 Reassessment: Patient appears in no apparent distress at this time. Patient and/or jb4 family updated on plan of care and expected duration. Pain level reassessed. Patient is alert, oriented x 3, equal unlabored respirations, skin warm/dry/pink. 02:00 Reassessment: Patient appears in no apparent distress at this time. Patient and/or jb4 family updated on plan of care and expected duration. Pain level reassessed. Patient is alert, oriented x 3, equal unlabored respirations, skin warm/dry/pink. Pt verbalized understanding of d/c and follow up instructions. Denies questions or concerns. assisted to vehicle via wheel chair. Patient states feeling better. Patient states symptoms have improved. Vital Signs: 04/08 22:56 BP 123 / 50; Pulse 67; Resp 18; Temp 98.3(TE); Pulse Ox 100% on R/A; Pain 6/10; jb4 04/09 00:00 BP 90 / 52; Pulse 64; Resp 18; Pulse Ox 95% on R/A; jb4 01:00 BP 109 / 67; Pulse 64; Resp 19; Pulse Ox 100% on R/A; jb4 02:00 BP 90 / 78; Pulse 61; Resp 15; Pulse Ox 98% on R/A; jb4 [place] Coma Score: 04/08 22:56 Eye Response: spontaneous(4). Verbal Response: oriented(5). Motor Response: obeys jb4 commands(6). Total: 15. 03 00:00 Eye Response: spontaneous(4). Verbal Response: oriented(5). Motor Response: obeys jb4 commands(6). Total: 15. 01:00 Eye Response: spontaneous(4). Verbal Response: oriented(5). Motor Response: obeys jb4 commands(6). Total: 15. 02:00 Eye Response: spontaneous(4). Verbal Response: oriented(5). Motor Response: obeys jb4 commands(6). Total: 15. Trauma Score (Adult): 04/08 22:56 Eye Response: spontaneous(1); Verbal Response: oriented(1); Motor Response: obeys jb4 commands(2); Systolic BP: > 89 mm Hg(4); Respiratory Rate: 10 to 29 per min(4); [place] Score: 15; Trauma Score: 12 04/09 00:00 Eye Response: spontaneous(1); Verbal Response: oriented(1); Motor Response: obeys jb4 commands(2); Systolic BP: > 89 mm Hg(4); Respiratory Rate: 10 to 29 per min(4); [place] Score: 15; Trauma Score: 12 01:00 Eye Response: spontaneous(1); Verbal Response: oriented(1); Motor Response: obeys jb4 commands(2); Systolic BP: > 89 mm Hg(4); Respiratory Rate: 10 to 29 per min(4); [place] Score: 15; Trauma Score: 12 02:00 Eye Response: spontaneous(1); Verbal Response: oriented(1); Motor Response: obeys jb4 commands(2); Systolic BP: > 89 mm Hg(4); Respiratory Rate: 10 to 29 per min(4); [place] Score: 15; Trauma Score: 12 ED Course: 04/08 22:56 Patient has correct armband on for positive identification. Bed in low position. Call jb4 light in reach. Side rails up X 1. Patient maintains SpO2 saturation greater than 95% on room air. 22:56 Patient maintains SpO2 saturation greater than 95% on room air. Thermoregulation: warm jb4 blanket given to patient. 22:59 Patient arrived in ED. cf2 23:13 Carolyne Vincent FNP-C is [facility]. snw 23:13 Phillip Ariza MD is Attending Physician. snw 23:36 Yordy Olson, RN is Primary Nurse. jb4 23:44 Triage completed. jb4 04/09 02:00 No provider procedures requiring assistance completed. IV discontinued, intact, jb4 bleeding controlled, No redness/swelling at site. Pressure dressing applied. 02:04 XRAY C Spine Ap/lat In Process Unspecified. EDMS 02:05 XRAY Thoracic Spine (Ap/lat) In Process Unspecified. EDMS 02:05 Pelvis XRAY In Process Unspecified. EDMS Administered Medications: 00:56 Drug: Lortab Liquid 7.5 ml {Note: rass score 0.} Route: PO; jb4 02:00 Follow up: Response: No adverse reaction; Pain is decreased; RASS: Alert and Calm (0) jb4 Intake: 02:00 PO: 0ml; Total: 0ml. jb4 Outcome: 01:17 Discharge ordered by MD. snw 02:00 Discharged to home via wheelchair, with family. jb4 02:00 Condition: stable 02:00 Discharge instructions given to patient, Instructed on discharge instructions, follow up and referral plans. Demonstrated understanding of instructions, follow-up care. 02:00 Patient's length of stay in the Emergency Department was greater than 2 hours. Waiting for ride home.Patient's length of stay extended due to 02:28 Patient left the ED. jb4 Signatures: Dispatcher [employer] EDLA Carolyne Vincent FNP-C HOSPICE MUSIC THERAPIST-Csnw Cindy Carrion RN RN lp1 Yordy Olson RN RN jb4 Ulysses Beasley 2 Corrections: (The following items were deleted from the chart) 02:25 02:25 No provider procedures requiring assistance completed. jb4 jb4 02:25 02:25 IV discontinued, intact, bleeding controlled, No redness/swelling at site. jb4 Pressure dressing applied, jb4 02:28 02:00 Reassessment: Patient appears in no apparent distress at this time. Patient jb4 and/or family updated on plan of care and expected duration. Pain level reassessed. Patient is alert, oriented x 3, equal unlabored respirations, skin warm/dry/pink. Pt verbalized understanding of d/c and follow up instructions. Denies questions or concerns. assisted to vehicle via wheel chair. jb4
--- NOTE | 2020-04-09 01:18 | EDPHYS ---
Physician Documentation [facility] Name: Clarisse Villalba Age: 45 yrs Sex: Female : 1975 Arrival Date: 04/08/2020 Time: 22:59 Bed 17 Private MD: ED Physician Phillip Ariza HPI: 04/08 23:53 This 45 yrs old Female presents to ER via EMS with complaints of Fall Injury, snw Hip Pain. 23:53 Details of fall: The patient fell from an upright position, slipped down a few stairs snw from standing on the stair. Onset: The symptoms/episode began/occurred suddenly, just prior to arrival. Associated injuries: The patient sustained neck injury, upper back injury. Severity of symptoms: At their worst the symptoms were moderate. It is unknown whether or not the patient has had similar symptoms in the past. It is unknown whether or not the patient has recently seen a physician. pt has a seizure disorder, last seizure Tuesday (4 days ago). Historical: - Allergies: 22:56 Aspirin; jb4 - Home Meds: 22:56 cephalexin 500 mg Oral cap 1 cap every 12 hours [Active]; sulfamethoxazole-trimethoprim jb4 Oral [Active]; - PMHx: 22:56 meningitis; FILBERT GROWER SHUNT; Seizures; jb4 - PSHx: 22:56 FILBERT GROWER shunt placement; jb4 - Immunization history:: Adult Immunizations up to date. - Social history:: Smoking status: Patient denies any tobacco usage or history of. Patient/guardian denies using alcohol, street drugs. - Immunization history: Last tetanus immunization: unknown. ROS: 23:53 Constitutional: Negative for fever, chills, and weight loss, Eyes: Negative for injury, snw pain, redness, and discharge, ENT: Negative for injury, pain, and discharge. 23:53 Cardiovascular: Negative for chest pain, palpitations, and edema, Respiratory: Negative for shortness of breath, cough, wheezing, and pleuritic chest pain, Abdomen/GI: Negative for abdominal pain, nausea, vomiting, diarrhea, and constipation, Back: Negative for injury and pain, : Negative for injury, bleeding, discharge, and swelling. 23:53 Skin: Negative for injury, rash, and discoloration, Neuro: Negative for headache, weakness, numbness, tingling, and seizure, Psych: Negative for depression, anxiety, suicide ideation, homicidal ideation, and hallucinations. 23:53 Neck: Positive for pain with movement. 23:53 MS/extremity: Positive for injury or acute deformity, abrasion, pain, of the thoracic area and left mid back. Exam: 23:50 Constitutional: This is a well developed, well nourished patient who is awake, alert, snw and in no acute distress. Head/Face: Normocephalic, atraumatic. Eyes: Pupils equal round and reactive to light, extra-ocular motions intact. Lids and lashes normal. Conjunctiva and sclera are non-icteric and not injected. Cornea within normal limits. Periorbital areas with no swelling, redness, or edema. 23:50 Chest/axilla: Normal chest wall appearance and motion. Nontender with no deformity. No lesions are appreciated. Cardiovascular: Regular rate and rhythm with a normal S1 and S2. No gallops, murmurs, or rubs. Normal PMI, no JVD. No pulse deficits. Respiratory: Lungs have equal breath sounds bilaterally, clear to auscultation and percussion. No rales, rhonchi or wheezes noted. No increased work of breathing, no retractions or nasal flaring. Abdomen/GI: Soft, non-tender, with normal bowel sounds. No distension or tympany. No guarding or rebound. No evidence of tenderness throughout. 23:50 Neuro: Awake and alert, GCS 15, oriented to person, place, time, and situation. Cranial nerves II-XII grossly intact. Motor strength 5/5 in all extremities. Sensory grossly intact. Cerebellar exam normal. Normal gait. 23:50 ENT: External ear(s): are unremarkable, Voice: is normal, arrived to ED in C-collar on backboard. 23:50 Neck: External neck: tenderness, that is mild, lateral, C-spine: C-collar placed TILE PICKER, Back board TILE PICKER 23:50 Back: pain, that is moderate, of the left mid back, ROM is painful, with all movement, CVA tenderness, is absent, muscle spasm, is not present. 23:50 Musculoskeletal/extremity: Extremities: grossly normal except: no tenderness to left hip but pt c/o pain, ROM: intact in all extremities, Circulation is intact in all extremities. 23:50 Skin: Appearance: normal except for affected area, injury, abrasion(s), small abrasion noted, of the left mid back. Vital Signs: 22:56 BP 123 / 50; Pulse 67; Resp 18; Temp 98.3(TE); Pulse Ox 100% on R/A; Pain 6/10; jb4 04/09 00:00 BP 90 / 52; Pulse 64; Resp 18; Pulse Ox 95% on R/A; jb4 01:00 BP 109 / 67; Pulse 64; Resp 19; Pulse Ox 100% on R/A; jb4 02:00 BP 90 / 78; Pulse 61; Resp 15; Pulse Ox 98% on R/A; jb4 Rumford Coma Score: 04/08 22:56 Eye Response: spontaneous(4). Verbal Response: oriented(5). Motor Response: obeys jb4 commands(6). Total: 15. 03 00:00 Eye Response: spontaneous(4). Verbal Response: oriented(5). Motor Response: obeys jb4 commands(6). Total: 15. 01:00 Eye Response: spontaneous(4). Verbal Response: oriented(5). Motor Response: obeys jb4 commands(6). Total: 15. 02:00 Eye Response: spontaneous(4). Verbal Response: oriented(5). Motor Response: obeys jb4 commands(6). Total: 15. Trauma Score (Adult): 04/08 22:56 Eye Response: spontaneous(1); Verbal Response: oriented(1); Motor Response: obeys jb4 commands(2); Systolic BP: > 89 mm Hg(4); Respiratory Rate: 10 to 29 per min(4); Redd Score: 15; Trauma Score: 12 04/09 00:00 Eye Response: spontaneous(1); Verbal Response: oriented(1); Motor Response: obeys jb4 commands(2); Systolic BP: > 89 mm Hg(4); Respiratory Rate: 10 to 29 per min(4); Rumford Score: 15; Trauma Score: 12 01:00 Eye Response: spontaneous(1); Verbal Response: oriented(1); Motor Response: obeys jb4 commands(2); Systolic BP: > 89 mm Hg(4); Respiratory Rate: 10 to 29 per min(4); Rumford Score: 15; Trauma Score: 12 02:00 Eye Response: spontaneous(1); Verbal Response: oriented(1); Motor Response: obeys jb4 commands(2); Systolic BP: > 89 mm Hg(4); Respiratory Rate: 10 to 29 per min(4); Rumford Score: 15; Trauma Score: 12 MDM: 04/08 23:14 Patient medically screened. [facility] 04/09 01:18 Data reviewed: vital signs, nurses notes. Data interpreted: Pulse oximetry: on room air snw is 100 %. Interpretation: normal. Counseling: I had a detailed discussion with the patient and/or guardian regarding: the historical points, exam findings, and any diagnostic results supporting the discharge/admit diagnosis, radiology results, the need for outpatient follow up, to return to the emergency department if symptoms worsen or persist or if there are any questions or concerns that arise at home. Special discussion: Based on the patient's history, exam and DX evaluation, there is no indication for emergent intervention or inpatient TX. It is understood by the patient/guardian that if the SXs persist or worsen they need to return immediately for re-evaluation. Based on the history and exam findings, there is no indication for further emergent testing or inpatient evaluation. I discussed with the patient/guardian the need to see the primary care provider for further evaluation of the symptoms. 04/08 23:15 Order name: XRAY C Spine Ap/lat snw 04/08 23:15 Order name: XRAY Thoracic Spine (Ap/lat) snw 04/08 23:15 Order name: Pelvis XRAY snw Administered Medications: 00:56 Drug: Lortab Liquid 7.5 ml {Note: rass score 0.} Route: PO; jb4 02:00 Follow up: Response: No adverse reaction; Pain is decreased; RASS: Alert and Calm (0) jb4 Disposition: 14:47 Co-signature as Attending Physician, Phillip Ariza MD I agree with the assessment and [facility] plan of care. Disposition: 04/09/20 01:17 Discharged to Home. Impression: Fall (on) (from) other stairs and steps, Contusion of back wall of thorax, Abrasion of back wall of thorax, Contusion of left hip. - Condition is Stable. - Discharge Instructions: Abrasion, Contusion, Fall Prevention in the Home. - Medication Reconciliation Form, Thank You Letter, Antibiotic Education, Prescription Opioid Use form. - Follow up: Emergency Department; When: As needed; Reason: Worsening of condition. Follow up: Private Physician; When: 1 - 2 days; Reason: Recheck today's complaints, Continuance of care, Re-evaluation by your physician. Signatures: Dispatcher [employer] EDPhillip Kapadia MD MD cha Therrien, Shelly, PLAN CHECKER-C PLAN CHECKER-Csnw Yordy Olson RN RN jb4 Corrections: (The following items were deleted from the chart) 02:28 01:17 04/09/2020 01:17 Discharged to Home. Impression: Fall (on) (from) other stairs jb4 and steps; Contusion of back wall of thorax; Abrasion of back wall of thorax; Contusion of left hip. Condition is Stable. Forms are Medication Reconciliation Form, Thank You Letter, Antibiotic Education, Prescription Opioid Use. Follow up: Emergency Department; When: As needed; Reason: Worsening of condition. Follow up: Private Physician; When: 1 - 2 days; Reason: Recheck today's complaints, Continuance of care, Re-evaluation by your physician. snw
[2020-04-09 02:51] VITALS: BP 90/78; O2SAT 98
--- NOTE | 2020-04-09 09:51 | RAD REPORT ---
EXAM DESCRIPTION: RAD - C Spine Ap/Lat - 04/09/2020 2:03 am CLINICAL HISTORY: Neck pain FINDINGS: Limited two view series No gross fracture or dislocation seen.
--- NOTE | 2020-04-09 09:52 | RAD REPORT ---
EXAM DESCRIPTION: RAD - Thoracic Spine Ap/Lat - 04/09/2020 2:04 am CLINICAL HISTORY: Back pain FINDINGS: No fracture or dislocation seen
--- NOTE | 2020-04-09 09:54 | RAD REPORT ---
EXAM DESCRIPTION: RAD - Pelvis - 04/09/2020 2:04 am CLINICAL HISTORY: Pelvic pain status post injury FINDINGS: No fracture or dislocation is seen. Tubing is present within the pelvis If the patient continues to have symptoms to suggest an occult fracture then MRI would be recommended
== END 2020-04-09 02:28 | disposition home or self-care (01) ==
LOC: ER 22:58
DX: S20.419A Abrasion of unspecified back wall of thorax, initial encounter (principal); S70.02XA Contusion of left hip, initial encounter; S20.229A Contusion of unspecified back wall of thorax, initial encounter; W10.9XXA Fall (on) (from) unspecified stairs and steps, initial encounter; Y93.9 Activity, unspecified; Y92.9 Unspecified place or not applicable; G40.802 Other epilepsy, not intractable, without status epilepticus; Z88.6 Allergy status to analgesic agent
CPT/HCPCS: 72040; 72070; 72170; 99284